=== PATIENT | female | born 1930 | race Caucasian/White ===

== ENCOUNTER 2018-05-20 07:08 | Emergency (ER) | payer OTHER ==
[2018-05-20] MEDS ORDERED: NS 1,000 ML IV ONE (07:32)
--- NOTE | 2018-05-20 07:36 | EDPHY ---
H & P Stated Complaint: Chronic pulsating back pn x 50 years Time Seen by Provider: 05/20/18 07:24 HPI/ROS: CHIEF COMPLAINT: Right CVA pain HISTORY OF PRESENT ILLNESS: Patient is a 88-year-old female who comes to the emergency department complaining of intermittent right CVA pain. She states that she has had this about once per year for the last 50 years. Typically she takes Tylenol with codeine it resolves. She has never had it worked up. She ran out of Tylenol with codeine however and suffered all day yesterday and could not sleep last night. She denies dysuria frequency but does have baseline incontinence because of bladder prolapse. She also has a history of appendectomy. It does not seem to be associated with foods. She has no abdominal pain. No nausea vomiting. No diarrhea. No fever. Her pain tends to last for about a second or two and then resolves for about an hour before returning. Severity: Severe but intermittent Modifying factors: None REVIEW OF SYSTEMS: Constitutional: denies: chills, fever, recent illness, recent injury EENTM: denies: blurred vision, double vision, nose congestion Respiratory: denies: cough, shortness of breath Cardiac: denies: chest pain, irregular heart rate, lightheadedness, palpitations Gastrointestinal/Abdominal: denies: abdominal pain, diarrhea, nausea, vomiting, blood streaked stools Genitourinary: denies: dysuria, frequency, hematuria, pain Musculoskeletal: See HPI Skin: denies: lesions, rash, jaundice, bruising Neurological: denies: headache, numbness, paresthesia, tingling, dizziness, weakness Hematologic/Lymphatic: denies: blood clots, easy bleeding, easy bruising Immunologic/allergic: denies: HIV/AIDS, transplant 10 systems reviewed and negative except as noted EXAM: GENERAL: Well-appearing, well-nourished and in no acute distress. HEAD: Atraumatic, normocephalic. EYES: Pupils equal round and reactive to light, extraocular movements intact, sclera anicteric, conjunctiva are normal. ENT: TMs normal, nares patent, oropharynx clear without exudates. Moist mucous membranes. NECK: Normal range of motion, supple without lymphadenopathy or JVD. LUNGS: Breath sounds clear to auscultation bilaterally and equal. No wheezes rales or rhonchi. HEART: Regular rate and rhythm without murmurs, rubs or gallops. ABDOMEN: Soft, nontender, normoactive bowel sounds. No guarding, no rebound. No masses appreciated. BACK: Pain in her right CVA region, No CVA tenderness, no spinal tenderness, step-offs or deformities EXTREMITIES: Normal range of motion, no pitting or edema. No clubbing or cyanosis. NEUROLOGICAL: Cranial nerves II through XII grossly intact. Normal speech, normal gait. 5/5 strength, normal movement in all extremities, normal sensation , normal reflexes PSYCH: Normal mood, normal affect. SKIN: Warm, dry, normal turgor, no visible rashes or lesions. Source: Patient Exam Limitations: No limitations - Personal History Current Tetanus/Diphtheria Vaccine: Yes - Medical/Surgical History Hx Asthma: No Hx Chronic Respiratory Disease: No Hx Diabetes: No Hx Cardiac Disease: No Hx Renal Disease: No Hx Cirrhosis: No Hx Alcoholism: No Hx HIV/AIDS: No Hx Splenectomy or Spleen Trauma: No Other PMH: Chronic back pain, arthritis, appendectomy, prolapsed bladder - Family History Significant Family History: No pertinent family hx - Social History Smoking Status: Never smoked Alcohol Use: Sober Drug Use: None Constitutional: Initial Vital Signs Temperature (C) 36.5 C 05/20/18 07:14 Heart Rate 81 05/20/18 07:14 Respiratory Rate 16 05/20/18 07:14 Blood Pressure 148/96 H 05/20/18 07:14 O2 Sat (%) 94 05/20/18 07:14 O2 Delivery Mode Room Air Allergies/Adverse Reactions: Sulfa (Sulfonamide Antibiotics) Allergy (Verified 05/20/18 08:00) Home Medications: Medication Instructions Recorded Acetaminophen/Codeine 300/30Mg 1 - 2 each PO Q6 PRN #10 tab 05/20/18 [Tylenol #3 (RX)] Medical Decision Making - Diagnostics EKG Interpretation: An EKG obtained and was read and documented in trace view. Please see trace view for full reading and report. Sinus rhythm, PVC, no acute ischemic changes Imaging Results: Imaging Impressions Abdomen/Pelvis CT 05/20/18 07:33 IMPRESSION: 1. No evidence of abdominopelvic inflammatory mass or ascites. 2. No nephrolithiasis. 3. Incomplete characterization of 2.9 cm cystic lesion left kidney which likely represents a simple cyst, ultrasound is recommended for further characterization as clinically warranted. Findings were discussed with Dr. Savage by telephone at 8:40 AM on 05/20/2018 Imaging: Discussed imaging studies w/ [employer] art teacher Radiologist ED Course/Re-evaluation: 8:40 a.m. We discussed the CT and lab results which are all very reassuring. The patient is asking for her Tylenol with codeine which she states always works for this pain. She states that she has used this for the last 50 years for her pain and typically makes her symptoms resolve after a few hours. It is taken her over year to go through the last prescription of 30 tablets. We discussed the differential indications for returning. She feels comfortable with this plan. Differential Diagnosis: Partial list of the Differential diagnosis considered include but were not limited to; musculoskeletal pain, radiculopathy, zoster, kidney stone and although unlikely based on the history and physical exam, I also considered urinary tract infection, biliary disease, PE, acute coronary disease. I discussed these differential diagnoses and the plan with the patient as well as the usual and expected course. The patient understands that the diagnosis is provisional and that in medicine we are not always correct and that further workup is often warranted. Usual and customary warnings were given. All of the patient's questions were answered. The patient was instructed to return to the emergency department should the symptoms at all worsen or return, otherwise to followup with the physician as we discussed. - Data Points Laboratory Results: Laboratory Results 05/20/18 07:52 05/20/18 07:52 05/20/18 05/20/18 05/20/18 07:52 07:52 05:15 WBC 7.20 10^3/uL 10^3/uL (3.80-9.50) RBC 4.38 10^6/uL 10^6/uL (4.18-5.33) Hgb 13.5 g/dL g/dL (12.6-16.3) Hct 39.9 % % (38.0-47.0) MCV 91.1 fL fL (81.5-99.8) MCH 30.8 pg pg (27.9-34.1) MCHC 33.8 g/dL g/dL (32.4-36.7) RDW 13.5 % % (11.5-15.2) Plt Count 266 10^3/uL 10^3/uL (150-400) MPV 9.4 fL fL (8.7-11.7) Neut % (Auto) 60.4 % % (39.3-74.2) Lymph % (Auto) 22.6 % % (15.0-45.0) [place] % (Auto) 10.6 % % (4.5-13.0) Eos % (Auto) 4.7 % % (0.6-7.6) Baso % (Auto) 1.4 % % (0.3-1.7) Nucleat RBC Rel Count 0.0 % % (0.0-0.2) Absolute Neuts (auto) 4.35 10^3/uL 10^3/uL (1.70-6.50) Absolute Lymphs (auto) 1.63 10^3/uL 10^3/uL (1.00-3.00) Absolute Monos (auto) 0.76 10^3/uL 10^3/uL (0.30-0.80) Absolute Eos (auto) 0.34 10^3/uL 10^3/uL (0.03-0.40) Absolute Basos (auto) 0.10 10^3/uL 10^3/uL (0.02-0.10) Absolute Nucleated RBC 0.00 10^3/uL 10^3/uL (0-0.01) Immature Gran % 0.3 % % (0.0-1.1) Immature Gran # 0.02 10^3/uL 10^3/uL (0.00-0.10) Sodium 141 mEq/L mEq/L (135-145) Potassium 4.3 mEq/L mEq/L (3.3-5.0) Chloride 110 mEq/L mEq/L (97-110) Carbon Dioxide 20 mEq/l L mEq/l (22-31) Anion Gap 11 mEq/L mEq/L (8-16) BUN 29 mg/dL H mg/dL (7-23) Creatinine 0.9 mg/dL mg/dL (0.6-1.0) Estimated GFR 59 Glucose 103 mg/dL H mg/dL (70-100) Calcium 9.6 mg/dL mg/dL (8.5-10.4) Total Bilirubin 0.7 mg/dL mg/dL (0.1-1.4) Conjugated Bilirubin 0.4 mg/dL mg/dL (0.0-0.5) Unconjugated Bilirubin 0.3 mg/dL mg/dL (0.0-1.1) AST 23 IU/L IU/L (14-46) ALT 26 IU/L IU/L (9-52) Alkaline Phosphatase 59 IU/L IU/L (38-126) Total Protein 7.2 g/dL g/dL (6.3-8.2) Albumin 4.1 g/dL g/dL (3.5-5.0) Lipase 96 IU/L IU/L (23-300) Urine Color YELLOW Urine Appearance HAZY Urine pH 5.0 (5.0-7.5) Ur Specific [place] 1.018 (1.002-1.030) Urine Protein NEGATIVE (NEGATIVE) Urine Ketones NEGATIVE (NEGATIVE) Urine Blood NEGATIVE (NEGATIVE) Urine Nitrate NEGATIVE (NEGATIVE) Urine Bilirubin NEGATIVE (NEGATIVE) Urine Urobilinogen NEGATIVE EU EU (0.2-1.0) Ur Leukocyte Esterase NEGATIVE (NEGATIVE) Urine RBC NONE SEEN /hpf /hpf (0-3) Urine WBC 1-3 /hpf /hpf (0-3) Ur Epithelial Cells TRACE /lpf /lpf (NONE-1+) Urine Bacteria TRACE /hpf H /hpf (NONE SEEN) Urine Mucus TRACE /lpf /lpf (NONE-1+) Urine Glucose NEGATIVE (NEGATIVE) Medications Given: Discontinued Medications Acetaminophen/Codeine Phosphate (Tylenol #3) 1 tab PO EDNOW ONE Stop: 05/20/18 08:43 Last Admin: 05/20/18 08:53 Dose: 1 tab Sodium Chloride (Ns) 1,000 mls @ 0 mls/hr IV EDNOW ONE; Wide Open PRN Reason: Protocol Stop: 05/20/18 07:33 Last Admin: 05/20/18 08:33 Dose: Not Given Departure - Departure Disposition: Home, Routine, Self-Care Clinical Impression: Back pain Qualifiers: Back pain location: low back pain Chronicity: unspecified Back pain laterality : right Sciatica presence: without sciatica Qualified Code(s): M54.5 - Low back pain Condition: Good Instructions: Back Pain (ED) Referrals: Sandee Hein MD [Primary Care Provider] - As per Instructions Prescriptions: Acetaminophen/Codeine 300/30Mg [Tylenol #3 (RX)] 1 - 2 each PO Q6 PRN #10 tab PRN Reason: *Cough
[2018-05-20 08:04] LABS: PLATELET COUNT 266 10^3/uL (150-400)
--- NOTE | 2018-05-20 08:21 | CPEKG ---
Test Reason : OPEN Blood Pressure : / mmHG Vent. Rate : 071 BPM Atrial Rate : 070 BPM P-R Int : 206 ms QRS Dur : 087 ms QT Int : 419 ms P-R-T Axes : 021 -62 024 degrees QTc Int : 456 ms Sinus arrhythmia Ventricular premature complex Inferior infarct, old Consider anterior infarct Confirmed by Goldy Savage ([id number]) on 05/20/2018 8:20:49 AM Referred By: Confirmed By:Goldy Savage
[2018-05-20] MEDS ORDERED: ACETAMINOPHEN/CODEINE 300/30MG TAB PO ONE (08:42)
[2018-05-20 08:56] VITALS: BP 132/80
== END 2018-05-20 08:59 | disposition home or self-care (01) ==
LOC: SUPCPDRO 07:08
DX: M54.5 Low back pain (principal)

== ENCOUNTER 2018-06-20 18:26 | Emergency (ER) | payer OTHER ==
--- NOTE | 2018-06-20 19:11 | EDPHY ---
H & P Stated Complaint: Tripped and fell earlier today;pain L scapula/hip;+ambulatory Time Seen by Provider: 06/20/18 19:11 HPI/ROS: CHIEF COMPLAINT: Mechanical fall, left scapular pain, left buttock pain HISTORY OF PRESENT ILLNESS: The patient presents to the ED for evaluation of left scapular pain and left buttock pain following mechanical fall earlier today. The patient did not strike her head or lose consciousness. She has no complaints of headache, neck pain, anterior chest pain, difficulty breathing, abdominal pain, midline back pain, numbness or weakness. The patient is not anticoagulated. The patient had no antecedent chest pain or palpitations. The patient has been ambulatory since her fall. Patient reports her symptoms are moderate in nature and worsened with movement. REVIEW OF SYSTEMS: A comprehensive 10 point review of systems is otherwise negative aside from elements mentioned in the history of present illness. Source: Patient - Personal History Current Tetanus Diphtheria and Acellular Pertussis (TDAP): Yes - Medical/Surgical History Hx Asthma: No Hx Chronic Respiratory Disease: No Hx Diabetes: No Hx Cardiac Disease: No Hx Renal Disease: No Hx Cirrhosis: No Hx Alcoholism: No Hx HIV/AIDS: No Hx Splenectomy or Spleen Trauma: No Other PMH: Chronic back pain, arthritis, appendectomy, prolapsed bladder - Social History Smoking Status: Never smoked - Physical Exam Exam: General Appearance: Alert, no distress Head: Atraumatic Eyes: Pupils equal, round, reactive ENT, Mouth: No hemotympanum, no oral trauma Neck: Nontender, trachea midline Respiratory: No chest wall tender, no subcutaneous air, lungs clear bilaterally , tenderness to palpation left posterior scapula with mild ecchymosis Cardiovascular: Regular rate and rhythm Abdomen: Abdomen is soft and nontender, pelvis stable Skin: Ecchymosis and bruising noted to the left gluteal area Back: No midline T/L/S pain Extremities: Nontender, full range of motion Neurological: A&Ox3, normal motor function, normal sensory exam Constitutional: Initial Vital Signs Temperature (C) 36.6 C 06/20/18 18:40 Heart Rate 72 06/20/18 18:40 Respiratory Rate 18 06/20/18 18:40 Blood Pressure 110/68 06/20/18 18:40 O2 Sat (%) 95 06/20/18 18:40 O2 Delivery Mode Room Air Allergies/Adverse Reactions: Sulfa (Sulfonamide Antibiotics) Allergy (Intermediate, Verified 06/20/18 18:51) Hives MSG Allergy (Uncoded 06/20/18 18:54) Home Medications: Medication Instructions Recorded Lutein/Zeaxanthin [Ocuvite Lutein 1 each PO 06/20/18 25-5 mg Softgel] Medical Decision Making - Diagnostics Imaging Results: Pelvis x-ray: One view, images reviewed by myself. Impression; Negative for acute fracture Scapular x-ray: Two view, images reviewed by myself. Impression: Negative for acute fracture. Chest x-ray: Two view, images reviewed by myself. Impression: Left posterior 6th rib fracture without evidence of hemothorax or pneumothorax. ED Course/Re-evaluation: The patient presents to the ED for evaluation of left posterior chest wall pain and scapular pain as well as left gluteal pain following mechanical fall earlier today. The patient did not strike her head. She is neurologically intact upon arrival. I have cleared her cervical spine via nexus criteria. Plain films of the pelvis demonstrate no evidence of an obvious fracture by my interpretation. Scapular x-ray demonstrates no evidence of an acute fracture. Chest x-ray does demonstrate a posterior left 6th rib fracture without evidence of significant pneumothorax or hemothorax. The patient has been informed of the presence of a rib fracture as the etiology of her pain. Her vital signs are stable. She is comfortable going home. The patient will use Tylenol as needed for pain management. The patient has been instructed to return to the ED for increasing pain, difficulty breathing or other concerns. She will use ice on her left gluteal contusion. The patient did undergo serial examinations x2 by myself in the emergency department over a 1.5 hr period. She remains with a benign abdominal examination Differential Diagnosis: Differential diagnosis considered includes pelvic fracture, scapular fracture, rib fracture, pneumothorax, hemothorax Departure - Departure Disposition: Home, Routine, Self-Care Clinical Impression: Rib fracture Qualifiers: Encounter type: initial encounter Rib fracture type: single rib Fracture type: closed Laterality: left Qualified Code(s): S22.32XA - Fracture of one rib, left side, initial encounter for closed fracture Condition: Good Instructions: Rib Fracture (ED) Additional Instructions: 1. You have a fractured rib. This should heal without complication over the next 4-6 weeks. 2. You may use Tylenol as needed for pain. 3. Please return to the ED for any acute shortness of breath, lightheadedness, worsening chest pain or other concerns. 4. Apply ice 20 min at a time 4 to 5 times a day to the bruise on your left thigh 5. Follow up with your primary care provider as needed Referrals: Sandee Hein MD [[facility] Primary Care Provider] - As per Instructions
[2018-06-20 20:30] VITALS: BP 110/65
== END 2018-06-20 20:27 | disposition home or self-care (01) ==
DX: S22.32XA Fracture of one rib, left side, initial encounter for closed fracture (principal); W19.XXXA Unspecified fall, initial encounter

== ENCOUNTER → 2018-11-18 | Outpatient (CLI) | payer OTHER | LOC: FIMAGING 12:37 | PROVIDERS: ATTEND Urology | DX: N28.1 Cyst of kidney, acquired (principal) ==

== ENCOUNTER 2018-11-24 08:01 | Emergency (ER) | payer OTHER ==
--- NOTE | 2018-11-24 08:03 | EDPHY ---
HPI/HX/ROS/PE/MDM Narrative: CHIEF COMPLAINT: Dizziness, fall HPI: This patient is an 88-year-old female who is generally healthy, past medical history includes arthritis. She arrives via EMS following a fall at home. This morning after waking, she felt well and went to get the mail. After this she got back in bed and when she got up later to use the restroom she felt weak and lightheaded. No room-spinning sensation. She notes "I was just completely like a kitten and helpless", and fell forward onto the carpeted floor. She denies any trauma or pain anywhere and did not strike her head or lose consciousness. She was able to get up and go to the restroom but continued to feel lightheaded and slid off of the toilet and sat on the floor for some time before calling EMS. She has been ill with a sinus infection for several days and has had very little to eat or drink. She notes she has not any bowel movements in three days. She has been using Afrin for symptomatic treatment for the last few days, and she did use this medication this morning. Per EMS, vitals were stable in transport; she is not hypotensive, BGL 127, IV was established and IVF administered. The patient denies any chest pain, shortness of breath, vomiting, numbness or paresthesias in her extremities, or other associated symptoms. REVIEW OF SYSTEMS: A comprehensive 10 system review of systems is otherwise negative aside from elements mentioned in the history of present illness and medical decision making. PMH: Arthritis. 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 SOCIAL HISTORY: Retired. Lives in [place]. PHYSICAL EXAM: General:Patient is alert, in no acute distress. ENT: Right pupil dilated secondary to prior surgery. Eyes are otherwise normal to inspection. ENT inspection normal. Neck: Normal inspection. Full range of motion. Respiratory:No respiratory distress. Breath sounds normal bilaterally. Cardiovascular: Regular rate and rhythm. Strong peripheral pulses. Normal cap refill. Abdomen:The abdomen is nontender to palpation. There are no peritoneal signs. There are normal bowel sounds. Back: Normal to inspection. No tenderness to palpation. Skin: Normal color. No rash. Warm and dry. Extremities: Normal appearance. Full range of motion. Neuro: Oriented x3. Normal motor function. Normal sensory function. ED Course: 8:02 Met EMS on arrival. 88 y/o female presents following a fall this morning due to dizziness and weakness. Exam is largely unremarkable. Plan for EKG, labs including CBC, chemistries, UA, POC troponin. EKG was ordered and interpreted by myself. Please see K121 system for official reading. Sinus rhythm. Reviewed laboratory studies. Consistent with dehydration. Troponin is negative. Chest x-ray is negative for acute processes, no pneumonia. See radiologist report for details. 09:11 The patient has had a bowel movement and feels much better. She was able to walk unassisted to the bathroom without difficulty. Patient's daughter is now at bedside. Reassessed. Discussed imaging and laboratory results. The patient has successfully passed a full road test. She is feeling well and would like to go home. Her daughter is in agreement. Plan to discharge home in good condition. Follow up and return precautions discussed. The patient is comfortable with this plan. MDM: This patient presents with what sounds like a near syncopal episode at home. No signs of injury are seen. We performed an extensive workup which is negative. I se no signs of CVA, ACS, PNA, or hypotension. The patient admits that she has very little to eat or drink recently, and symptoms started after using an Afrin nasal spray, which likely contributed to presentation. I think her presentation is most consistent with dehydration, especially because symptoms have now completely resolved with IV fluids. Patient declines further workup or observation here and would like to go home. - Data Points Imaging Results: Imaging Impressions Chest X-Ray 11/24/18 08:31 Impression: 1. No definite acute findings. 2. Hyperexpansion with interstitial prominence, which can be related to COPD. Imaging: I viewed and interpreted images myself Laboratory Results: Laboratory Results 11/24/18 08:00 11/24/18 08:00 11/24/18 11/24/18 11/24/18 08:32 08:11 08:00 WBC RBC Hgb Hct MCV MCH MCHC RDW Plt Count MPV Neut % (Auto) Lymph % (Auto) [place] % (Auto) Eos % (Auto) Baso % (Auto) Nucleat RBC Rel Count Absolute Neuts (auto) Absolute Lymphs (auto) Absolute Monos (auto) Absolute Eos (auto) Absolute Basos (auto) Absolute Nucleated RBC Immature Gran % Immature Gran # Sodium 138 mEq/L mEq/L (135-145) Potassium 3.8 mEq/L mEq/L (3.5-5.2) Chloride 102 mEq/L mEq/L (97-110) Carbon Dioxide 21 mEq/l L mEq/l (22-31) Anion Gap 15 mEq/L H mEq/L (6-14) BUN 18 mg/dL mg/dL (7-23) Creatinine 1.1 mg/dL H mg/dL (0.6-1.0) Estimated GFR 47 Glucose 137 mg/dL H mg/dL (70-100) Calcium 9.9 mg/dL mg/dL (8.5-10.4) POC Troponin I 0.01 ng/mL ng/mL (0.00-0.08) Urine Color EARL Urine Appearance MODERATELY TURBID Urine pH 5.0 (5.0-7.5) Ur Specific [place] 1.024 (1.002-1.030) Urine Protein 2+ H (NEGATIVE) Urine Ketones TRACE H (NEGATIVE) Urine Blood NEGATIVE (NEGATIVE) Urine Nitrate NEGATIVE (NEGATIVE) Urine Bilirubin NEGATIVE (NEGATIVE) Urine Urobilinogen 4.0 EU H EU (0.2-1.0) Ur Leukocyte Esterase NEGATIVE (NEGATIVE) Urine RBC 1-3 /hpf /hpf (0-3) Urine WBC 5-10 /hpf H /hpf (0-3) Ur Epithelial Cells 2+ /lpf H /lpf (NONE-1+) Urine Bacteria 1+ /hpf H /hpf (NONE SEEN) Hyaline Casts 25-50 /lpf H /lpf (0-1) Urine Mucus 3+ /lpf H /lpf (NONE-1+) Urine Glucose NEGATIVE (NEGATIVE) 11/24/18 08:00 WBC 10.89 10^3/uL H 10^3/uL (3.80-9.50) RBC 4.02 10^6/uL L 10^6/uL (4.18-5.33) Hgb 13.5 g/dL g/dL (12.6-16.3) Hct 38.1 % % (38.0-47.0) MCV 94.8 fL fL (81.5-99.8) MCH 33.6 pg pg (27.9-34.1) MCHC 35.4 g/dL g/dL (32.4-36.7) RDW 14.7 % % (11.5-15.2) Plt Count 294 10^3/uL 10^3/uL (150-400) MPV 9.7 fL fL (8.7-11.7) Neut % (Auto) 63.0 % % (39.3-74.2) Lymph % (Auto) 24.3 % % (15.0-45.0) [place] % (Auto) 8.4 % % (4.5-13.0) Eos % (Auto) 2.4 % % (0.6-7.6) Baso % (Auto) 1.6 % % (0.3-1.7) Nucleat RBC Rel Count 0.0 % % (0.0-0.2) Absolute Neuts (auto) 6.86 10^3/uL H 10^3/uL (1.70-6.50) Absolute Lymphs (auto) 2.65 10^3/uL 10^3/uL (1.00-3.00) Absolute Monos (auto) 0.92 10^3/uL H 10^3/uL (0.30-0.80) Absolute Eos (auto) 0.26 10^3/uL 10^3/uL (0.03-0.40) Absolute Basos (auto) 0.17 10^3/uL H 10^3/uL (0.02-0.10) Absolute Nucleated RBC 0.00 10^3/uL 10^3/uL (0-0.01) Immature Gran % 0.3 % % (0.0-1.1) Immature Gran # 0.03 10^3/uL 10^3/uL (0.00-0.10) Sodium Potassium Chloride Carbon Dioxide Anion Gap BUN Creatinine Estimated GFR Glucose Calcium POC Troponin I Urine Color Urine Appearance Urine pH Ur Specific [place] Urine Protein Urine Ketones Urine Blood Urine Nitrate Urine Bilirubin Urine Urobilinogen Ur Leukocyte Esterase Urine RBC Urine WBC Ur Epithelial Cells Urine Bacteria Hyaline Casts Urine Mucus Urine Glucose Point of Care Test Results: Chemistry 11/24/18 08:11 POC Troponin I 0.01 ng/mL ng/mL (0.00-0.08) General Time Seen by Provider: 11/24/18 08:02 Initial Vital Signs: Initial Vital Signs Temperature (C) 36.9 C 11/24/18 08:01 Heart Rate 71 11/24/18 08:01 Respiratory Rate 16 11/24/18 08:01 Blood Pressure 120/67 11/24/18 08:01 O2 Sat (%) 94 11/24/18 08:01 O2 Delivery Mode Room Air Allergies/Adverse Reactions: Sulfa (Sulfonamide Antibiotics) Allergy (Intermediate, Verified 06/20/18 18:51) Hives MSG Allergy (Uncoded 06/20/18 18:54) Home Medications: Medication Instructions Recorded Lutein/Zeaxanthin [Ocuvite Lutein 1 each PO 06/20/18 25-5 mg Softgel] Timolol 0.25% 11/24/18 Departure - Departure Disposition: Home, Routine, Self-Care Clinical Impression: Near syncope, Weakness, Dehydration Condition: Good Instructions: Dehydration (ED), Near Syncope (ED) Additional Instructions: Stay well hydrated. Follow up with your primary care provider in 2-3 days. Return to the Emergency Department for fever, chest pain, shortness of breath, increasing pain, recurrent episodes of near-syncope, or other worsening of condition. Referrals: Deysi Kc MD [Medical Doctor] - As per Instructions Report Scribed for: Dontae Tidwell Report Scribed by: Wanda Barrera Date of Report: 11/24/18 Time of Report: 08:12 Physician Review and Approval Statement: Portions of this note were transcribed by an ED scribe. I personally performed the history, physical exam, and medical decision making; and confirm the accuracy of the information in the transcribed note.
[2018-11-24 08:15] LABS: PLATELET COUNT 294 10^3/uL (150-400)
[2018-11-24 09:30] VITALS: BP 107/60
--- NOTE | 2018-11-24 10:49 | CPEKG ---
Test Reason : OPEN Blood Pressure : / mmHG Vent. Rate : 071 BPM Atrial Rate : 070 BPM P-R Int : 196 ms QRS Dur : 089 ms QT Int : 433 ms P-R-T Axes : 017 -60 029 degrees QTc Int : 471 ms Sinus rhythm Inferior infarct, old Confirmed by Dontae Tidwell ([id number]) on 11/24/2018 10:48:48 AM Referred By: Dontae Tidwell Confirmed By:Dontae Tidwell
== END 2018-11-24 09:33 | disposition home or self-care (01) ==
LOC: EDUNIT#
DX: R55 Syncope and collapse (principal); E86.0 Dehydration; W01.198A Fall on same level from slipping, tripping and stumbling with subsequent striking against other object, initial encounter; Y92.003 Bedroom of unspecified non-institutional (private) residence as the place of occurrence of the external cause; Z79.899 Other long term (current) drug therapy
CPT/HCPCS: 84484-ER